=== PATIENT | male | born 1930 | race Caucasian/White ===

== ENCOUNTER 2017-06-16 10:12 | Emergency (ER) | payer MEDICARE, BC ==
[~2017-06-16] VITALS: Ht 182.9 cm; Wt 68.0 kg
[~2017-06-16 10:12] MED LIST: ALBUTEROL S2.5 MG/.5 IN; AMBIEN5 MG PO; ASPIRIN81 MG PO; CENTRUM PO; CEPHALEXIN500 MG PO; COUMADIN3 MG PO; DIGOXIN0.125 MG PO; EQ ASPIRIN325 M1 OR; FLOMAX0.4 M1 PO; FLOMAX0.4 MG OR; HYDROCHLOROT25 MG OR; JANUVIA100 MG PO; KEFLEX500 MG PO; LASIX40 MG PO; MET12.5TAB OR; METOPROL TAR25 MG PO; METOPROL TAR50 MG PO; NITROFUR MAC100 MG OR; PERCOCET 5/325M1 TAB OR; PERCOCET1 TA2 PO; PERCOCET1 TAB OR; PRILOSEC20 MG PO; SPIRIVA HANDIHALER IN; TYLENOL325 MG OR; ULTRAM50 M1 PO; ZIAC 55 MG OR
[2017-06-16 11:18] LABS: HEMATOCRIT 40.6 % (39.0-50.0); HEMOGLOBIN 13.6 g/dl (14.0-18.0); IMMATURE GRANULOCYTES 0.6 % (0.0-1.0); MEAN CELL VOLUME 86.4 fL CALC (80.0-100.0); MEAN CORPUSCULAR HGB 28.9 pG CALC (26.0-32.0); MEAN CORPUSCULAR HGB CONC 33.5 g/L CALC (32.0-36.0); NEUT# 5.33 thou/uL (1.82-7.42); RED BLOOD COUNT 4.7 mill/uL (4.70-6.10); RED CELL DISTRI WIDTH 15.8 % (11.5-15.5)
[2017-06-16] MEDS ORDERED: TESTOSTERONE (11:26)
[2017-06-16 11:32] LABS: INTERNATIONAL NORMALIZED RATIO 1.1 RATIO (0.7-1.3); PROTHROMBIN TIME 12.5 SECONDS (9.0-12.5)
[2017-06-16 11:38] LABS: ALBUMIN 3.6 g/dL (3.2-5.0); ALKALINE PHOSPHATASE 80 u/l (38-126); ANION GAP 12 (6-22 (CALC)); BILIRUBIN, TOTAL 1.7 mg/dL (0.0-1.4); BUN 31 mg/dL (8-23); BUN/CREATININE RATIO 31 (12-20 (CALC)); CALCIUM 9.5 mg/dL (8.4-10.2); CARBON DIOXIDE 32 mmol/l (22-30); CHLORIDE 100 mmol/l (95-108); GFR > 60 ML/MIN (>=60 (CALC)); GFR FOR AFR.AMER. > 60 ML/MIN (>=60 (CALC)); GLUCOSE 163 mg/dL (82-115); POTASSIUM 4.2 mmol/l (3.5-5.1); SGOT/AST 23 u/l (19-48); SGPT/ALT 32 u/l (11-66); SODIUM 140 mmol/l (137-146)
[2017-06-16 11:42] LABS: DIGOXIN 0.6 ng/mL (0.8-2.0)
[2017-06-16 13:06] LABS: URINE BILIRUBIN - DIPSTICK NEGATIVE (NEGATIVE); URINE BLOOD DIPSTICK LARGE (NEGATIVE); URINE COLOR YELLOW; URINE GLUCOSE - DIPSTICK NEGATIVE (NEGATIVE); URINE KETONE NEGATIVE (NEGATIVE); URINE PROTEIN - DIPSTICK 30 mg/dL (NEG-TRACE); URINE SPECIFIC GRAVITY 1.025
[2017-06-16 13:08] LABS: URINE CLARITY CLOUDY; URINE LEUK ESTERASE MODERATE (NEGATIVE); URINE NITRITE - DIPSTICK POSITIVE (Negative)
[2017-06-16 13:16] LABS: URINE BACTERIA FEW hpf; URINE WBC 50-100 WBC/hpf (0-5)
[2017-06-16 14:09] VITALS: BP 126/69
[2017-06-16] MEDS ORDERED: TRAMADOL HYDROC50 MG PO (14:31)
== END 2017-06-16 14:40 | disposition home or self-care (01) ==
LOC: ED 10:12
PROVIDERS: Emergency Medicine
DX: R60.0 Localized edema (principal); Z98.62 Peripheral vascular angioplasty status; T81.89XA Other complications of procedures, not elsewhere classified, initial encounter; I48.91 Unspecified atrial fibrillation; Z79.01 Long term (current) use of anticoagulants; I10 Essential (primary) hypertension; R53.1 Weakness
CPT/HCPCS: J1650

== ENCOUNTER 2017-06-24 10:05 | Inpatient (IN) | payer MEDICARE, BC ==
[2017-06-24] VITALS (9 sets, daily range): BP systolic 110–137; BP diastolic 70–89
[~2017-06-24] VITALS: Ht 182.9 cm; Wt 69.2 kg
[~2017-06-24 10:05] MED LIST changes: +TESTOSTERONE; +TRAMADOL HYDROC50 MG PO
[2017-06-24] MEDS ORDERED: ASPIRIN81 MG PO (10:24)
[2017-06-24 10:51] LABS: HEMATOCRIT 38.9 % (39.0-50.0); HEMOGLOBIN 12.6 g/dl (14.0-18.0); IMMATURE GRANULOCYTES 0.7 % (0.0-1.0); MEAN CELL VOLUME 86.8 fL CALC (80.0-100.0); MEAN CORPUSCULAR HGB 28.1 pG CALC (26.0-32.0); MEAN CORPUSCULAR HGB CONC 32.4 g/L CALC (32.0-36.0); NEUT# 4.53 thou/uL (1.82-7.42); RED BLOOD COUNT 4.48 mill/uL (4.70-6.10); RED CELL DISTRI WIDTH 15.7 % (11.5-15.5)
[2017-06-24 11:05] LABS: ALBUMIN 3.4 g/dL (3.2-5.0); ALKALINE PHOSPHATASE 74 u/l (38-126); ANION GAP 14 (6-22 (CALC)); BILIRUBIN, TOTAL 1.4 mg/dL (0.0-1.4); BUN 25 mg/dL (8-23); BUN/CREATININE RATIO 26 (12-20 (CALC)); CALCIUM 9.5 mg/dL (8.4-10.2); CARBON DIOXIDE 34 mmol/l (22-30); CHLORIDE 96 mmol/l (95-108); GFR > 60 ML/MIN (>=60 (CALC)); GFR FOR AFR.AMER. > 60 ML/MIN (>=60 (CALC)); GLUCOSE 174 mg/dL (82-115); POTASSIUM 4.2 mmol/l (3.5-5.1); SGOT/AST 29 u/l (19-48); SGPT/ALT 30 u/l (11-66); SODIUM 140 mmol/l (137-146); TOTAL PROTEIN 7.1 g/dL (6.3-8.2)
[2017-06-24 11:17] LABS: MYOGLOBIN 73 ng/mL (0 - 121)
[2017-06-24 14:23] LABS: URINE BILIRUBIN - DIPSTICK NEGATIVE (NEGATIVE); URINE BLOOD DIPSTICK SMALL (NEGATIVE); URINE COLOR YELLOW; URINE GLUCOSE - DIPSTICK NEGATIVE (NEGATIVE); URINE KETONE NEGATIVE (NEGATIVE); URINE NITRITE - DIPSTICK NEGATIVE (Negative); URINE PROTEIN - DIPSTICK 30 mg/dL (NEG-TRACE); URINE UROBILINOGEN - DIPSTICK 0.2 E.U./dL (0.2)
[2017-06-24 14:24] LABS: URINE CLARITY CLOUDY; URINE LEUK ESTERASE LARGE (NEGATIVE)
[2017-06-24 14:35] LABS: URINE BACTERIA MANY hpf; URINE WBC TNTC WBC/hpf (0-5)
[2017-06-24 17:42] LABS: INTERNATIONAL NORMALIZED RATIO 1.2 RATIO (0.7-1.3); PROTHROMBIN TIME 13.4 SECONDS (9.0-12.5)
[2017-06-24 17:47] LABS: CALCULATED LDLCHOLESTEROL 66 mg/dL (62-129 (CALC)); CHOLESTEROL HDL RATIO 3.2 (<4.4 (CALC)); HDL CHOLESTEROL 38 mg/dL (>=40); MAGNESIUM 1.6 mg/dL (1.6-2.3); TOTAL CHOLESTEROL 120 mg/dl (0-199); TOTAL TRIGLYCERIDES 82 mg/dl (30-149); VLDL CHOLESTROL 16 mg/dl (0-38 (CALC))
[2017-06-24 17:52] LABS: DIGOXIN < 0.4 ng/mL (0.8-2.0)
[2017-06-25] VITALS (23 sets, daily range): BP systolic 98–151; BP diastolic 59–81
[2017-06-25 06:24] LABS: HEMATOCRIT 37.3 % (39.0-50.0); HEMOGLOBIN 12.1 g/dl (14.0-18.0); IMMATURE GRANULOCYTES 0.7 % (0.0-1.0); MEAN CELL VOLUME 86.7 fL CALC (80.0-100.0); MEAN CORPUSCULAR HGB 28.1 pG CALC (26.0-32.0); MEAN CORPUSCULAR HGB CONC 32.4 g/L CALC (32.0-36.0); NEUT# 6.99 thou/uL (1.82-7.42); RED BLOOD COUNT 4.3 mill/uL (4.70-6.10); RED CELL DISTRI WIDTH 15.6 % (11.5-15.5)
[2017-06-25 06:40] LABS: ANION GAP 11 (6-22 (CALC)); BUN 21 mg/dL (8-23); BUN/CREATININE RATIO 21 (12-20 (CALC)); CALCIUM 9.4 mg/dL (8.4-10.2); CARBON DIOXIDE 37 mmol/l (22-30); CHLORIDE 97 mmol/l (95-108); GFR > 60 ML/MIN (>=60 (CALC)); GFR FOR AFR.AMER. > 60 ML/MIN (>=60 (CALC)); GLUCOSE 143 mg/dL (82-115); MAGNESIUM 1.7 mg/dL (1.6-2.3); POTASSIUM 4.9 mmol/l (3.5-5.1); SODIUM 141 mmol/l (137-146)
[2017-06-25 06:52] LABS: INTERNATIONAL NORMALIZED RATIO 1.2 RATIO (0.7-1.3); PROTHROMBIN TIME 13.6 SECONDS (9.0-12.5)
[2017-06-26] VITALS (16 sets, daily range): BP systolic 113–153; BP diastolic 50–102
[2017-06-26 05:01] LABS: HEMATOCRIT 42.7 % (39.0-50.0); HEMOGLOBIN 13.9 g/dl (14.0-18.0); MEAN CELL VOLUME 87.3 fL CALC (80.0-100.0); MEAN CORPUSCULAR HGB 28.4 pG CALC (26.0-32.0); MEAN CORPUSCULAR HGB CONC 32.6 g/L CALC (32.0-36.0); RED BLOOD COUNT 4.89 mill/uL (4.70-6.10); RED CELL DISTRI WIDTH 15.4 % (11.5-15.5)
[2017-06-26 05:19] LABS: INTERNATIONAL NORMALIZED RATIO 1.2 RATIO (0.7-1.3); PROTHROMBIN TIME 12.7 SECONDS (9.0-12.5)
[2017-06-26 05:23] LABS: ANION GAP 13 (6-22 (CALC)); BUN 28 mg/dL (8-23); BUN/CREATININE RATIO 36 (12-20 (CALC)); CALCIUM 9.8 mg/dL (8.4-10.2); CARBON DIOXIDE 37 mmol/l (22-30); CHLORIDE 96 mmol/l (95-108); CREATININE 0.8 mg/dL (0.7-1.3); GFR > 60 ML/MIN (>=60 (CALC)); GFR FOR AFR.AMER. > 60 ML/MIN (>=60 (CALC)); GLUCOSE 225 mg/dL (82-115); MAGNESIUM 1.8 mg/dL (1.6-2.3); POTASSIUM 4.3 mmol/l (3.5-5.1); SODIUM 142 mmol/l (137-146)
[2017-06-27 04:19] VITALS: BP 136/76
[2017-06-27 06:45] LABS: INTERNATIONAL NORMALIZED RATIO 1.1 RATIO (0.7-1.3); PROTHROMBIN TIME 12.2 SECONDS (9.0-12.5)
[2017-06-27 07:33] VITALS: BP 134/79
[2017-06-27 11:10] VITALS: BP 123/68
[2017-06-27 15:42] VITALS: BP 120/61
[2017-06-27 19:22] VITALS: BP 124/51
[2017-06-28 03:35] VITALS: BP 136/76
[2017-06-28 07:25] VITALS: BP 132/78
[2017-06-28 08:26] LABS: INTERNATIONAL NORMALIZED RATIO 1.3 RATIO (0.7-1.3); PROTHROMBIN TIME 14.5 SECONDS (9.0-12.5)
[2017-06-28] MEDS ORDERED: COUMADIN5 MG PO (13:47)
[2017-06-28] MEDS ORDERED: DILTIAZEM CD300 MG PO (13:47)
[2017-06-28] MEDS ORDERED: OMNICEF300 MG PO (13:47)
[2017-06-28 15:20] VITALS: BP 124/62
== END 2017-06-28 18:05 | disposition home or self-care (01) | DRG 180 ==
LOC: ED 10:05 → ED-I 14:45 → ED 14:59 → ICU 15:00 → MS2 15:00 → ICU 20:45 → MS2 06-26 15:54
PROVIDERS: Emergency Medicine; Nurse Practitioner Family; ADMIT Internal Medicine; ATTEND Internal Medicine
PROC: 0BBJ3ZX Excision of Left Lower Lung Lobe, Percutaneous Approach, Diagnostic (ICD-10-PCS; principal; 2017-06-25)
DX: C34.11 Malignant neoplasm of upper lobe, right bronchus or lung (principal); J96.20 Acute and chronic respiratory failure, unspecified whether with hypoxia or hypercapnia; E11.51 Type 2 diabetes mellitus with diabetic peripheral angiopathy without gangrene; N39.0 Urinary tract infection, site not specified; E11.65 Type 2 diabetes mellitus with hyperglycemia; C34.12 Malignant neoplasm of upper lobe, left bronchus or lung; B96.20 Unspecified Escherichia coli [E. coli] as the cause of diseases classified elsewhere; C34.32 Malignant neoplasm of lower lobe, left bronchus or lung; I50.22 Chronic systolic (congestive) heart failure; J44.1 Chronic obstructive pulmonary disease with (acute) exacerbation; I11.0 Hypertensive heart disease with heart failure; I08.1 Rheumatic disorders of both mitral and tricuspid valves; N40.0 Benign prostatic hyperplasia without lower urinary tract symptoms; I48.2 Chronic atrial fibrillation; G47.33 Obstructive sleep apnea (adult) (pediatric); E29.1 Testicular hypofunction; I25.5 Ischemic cardiomyopathy; I65.23 Occlusion and stenosis of bilateral carotid arteries; I27.20 Pulmonary hypertension, unspecified; Z79.01 Long term (current) use of anticoagulants; Z95.0 Presence of cardiac pacemaker; Z87.891 Personal history of nicotine dependence; Z95.5 Presence of coronary angioplasty implant and graft
CPT/HCPCS: J1650; Q9967